=== PATIENT | male | born 1985 | race Caucasian/White ===

== ENCOUNTER 2021-01-17 13:12 | Outpatient (CLI) | payer OTHER, SELFPAY | END 2021-01-17 13:13 | disposition home or self-care (01) | PROVIDERS: PCP Nurse Practitioner Family; Visit Provider Surgery | DX: S81.822A Laceration with foreign body, left lower leg, initial encounter (principal); W29.3XXA Contact with powered garden and outdoor hand tools and machinery, initial encounter | CPT/HCPCS: 11043; G0463 ==

== ENCOUNTER → 2021-12-10 09:55 | Outpatient (BNVA) | payer OTHER, SELFPAY | PROVIDERS: PCP Nurse Practitioner Family; Visit Provider Nurse Practitioner Family | DX: R05.9 Cough, unspecified (principal); Z20.822 Contact with and (suspected) exposure to COVID-19 | CPT/HCPCS: 87486; 87581; 87633 ==